=== PATIENT | male | born 1990 | race Two or more races ===

== ENCOUNTER → 2024-03-21 11:15 | Outpatient (REF) | payer OTHER, SELFPAY ==
[2024-03-21 19:26] LABS: Hepatitis B Surface Antibody Negative
[2024-03-21 20:11] LABS: Rubella Positive
== END ==
LOC: OHS 11:15
PROVIDERS: ATTENDING PHYSICIAN Nurse Practitioner Family
DX: Z23 Encounter for immunization (principal)
CPT/HCPCS: 36415; 86480; 86706; 86735; 86762; 86765; 86787

== ENCOUNTER → 2024-09-05 10:58 | Outpatient (REF) | payer OTHER, SELFPAY ==
[2024-09-05 18:35] LABS: Hepatitis B Surface Antigen Negative (Negative)
== END ==
LOC: OHS 10:58
PROVIDERS: ATTENDING PHYSICIAN Nurse Practitioner Family
DX: Z23 Encounter for immunization (principal)
CPT/HCPCS: 36415; 87340

== ENCOUNTER → 2025-04-29 11:21 | Outpatient (REF) | payer OTHER, SELFPAY ==
[2025-04-29 13:58] LABS: Hepatitis B Surface Antibody Negative
== END ==
LOC: OHS 11:21
PROVIDERS: ATTENDING PHYSICIAN Nurse Practitioner Family
DX: Z23 Encounter for immunization (principal)
CPT/HCPCS: 36415; 86706